=== PATIENT | male | born 1950 | race Caucasian/White ===

== ENCOUNTER 2020-10-18 12:40 | Day surgery (SDC) | payer OTHER ==
[~2020-10-18] VITALS: Ht 185.4 cm; Wt 76.9 kg
== END 2020-10-18 16:53 | disposition home or self-care (01) ==
LOC: ORSCSDS 12:40
PROVIDERS: Surgery
PROC: 0JB40ZZ Excision of Right Neck Subcutaneous Tissue and Fascia, Open Approach (ICD-10-PCS; principal; 2020-10-18 16:00)
DX: D17.0 Benign lipomatous neoplasm of skin and subcutaneous tissue of head, face and neck (principal); Z87.891 Personal history of nicotine dependence
CPT/HCPCS: 88304; J0690; J7120